=== PATIENT | female | born 1995 | race African-American/Black ===

== ENCOUNTER 2018-02-24 06:58 | Emergency (ER) | payer MEDICAID, OTHER ==
[2018-02-24] MEDS ORDERED: ONDANSETRON DISINTEGRATING 4 MG TAB ONE (07:09)
[2018-02-24] MEDS ORDERED: ONDANSETRON DISINTEGRATING 4 MG TAB PO ONE (07:10)
[2018-02-24] MEDS ORDERED: NS 1,000 ML IV ONE ×2 (07:28→09:13)
--- NOTE | 2018-02-24 07:32 | EDPHY ---
H & P Time Seen by Provider: 02/24/18 07:20 HPI/ROS: CHIEF COMPLAINT: "I am having menstrual cramps" HISTORY OF PRESENT ILLNESS: Patient is a 22-year-old female who presents emergency department reporting menstrual cramps. Patient is G1 para 0. Her last menstrual period was last month. She does not recall the date. She denies being . Patient states she regularly has severe menses. Her symptoms started a few days ago. She was seen at outside hospital [place] yesterday. There she was told she had a normal ultrasound and a negative test. Her labs are normal. She was discharged home after feeling better. Her cramps have returned. She describes severe lower cramps. Does not radiate to her back. No dysuria frequency. No vaginal discharge. No fevers or chills. REVIEW OF SYSTEMS: My complete review of systems is negative except as mentioned in the HPI. Past Medical/Surgical History: Includes menorrhagia, anemia, miscarriage Past surgical history: Negative Social history: The patient denies smoking Smoking Status: Former smoker Physical Exam: 37, 112/86, 83, 24, 93% on room air GENERAL: Mild acute distress, alert. HEENT: Eyes normal to inspection, normal pharynx, no signs of dehydration. NECK: No thyromegaly, no lymphadenopathy, supple. RESPIRATORY: Clear to auscultation bilaterally, no rales, rhonchi or wheezing. CVS: Regular rate and rhythm, no rubs, murmurs, or gallops. ABDOMEN: Soft, mild diffuse lower abdominal tenderness palpation with no rebound or guarding, nondistended, no organomegaly. BACK: Normal to inspection, no CVA tenderness. SKIN: Normal color, no rash, warm, dry. No pallor. EXTREMITIES: No pedal edema, no calf tenderness, no Homans sign or cords, no joint swelling. NEURO/PSYCH: Alert and oriented, normal mood and affect, normal motor sensory exam. Constitutional: Initial Vital Signs Temperature (C) 37 C 02/24/18 07:06 Heart Rate 83 02/24/18 07:06 Respiratory Rate 24 H 02/24/18 07:06 Blood Pressure 112/86 H 02/24/18 07:06 O2 Sat (%) 93 02/24/18 07:06 O2 Delivery Mode Room Air Allergies/Adverse Reactions: indomethacin Allergy (Verified 02/24/18 07:05) metoclopramide [From Reglan] Allergy (Verified 02/24/18 07:05) Home Medications: Medication Instructions Recorded NK [No Known Home Meds] 02/24/18 Medical Decision Making ED Course/Re-evaluation: In the emergency department I discussed possible etiologies with the patient. I answered all her questions. IV was placed. Laboratory studies were obtained. I attempted to obtain the old records from the [facility]. Patient was given normal saline 1 L IV for hydration. She was given morphine 4 mg IV for pain. She was given Zofran 4 mg orally back triage. 850: I reviewed the patient's laboratory studies. White count was normal. Patient is mildly anemic. Chemistry panel is normal. Renal function normal. is negative. The patient was still having abdominal discomfort and cramping. It is noted the patient has an allergy to indomethacin. Patient was given Dilaudid 0.5 mg IV. 930: I rechecked the patient. She states her cramps have completely resolved. Abdomen is soft, nontender nondistended. She describes mild anxiety. She has a history of anxiety attacks. She is given Ativan 0.5 mg IV. She has called her friend to come pick her up. I am still waiting on records from the the [facility]. 10 20: I rechecked the patient is doing well. Her abdominal pain is resolved. Soft, nontender nondistended. She is given warnings prior to leaving. Of note, never she received the records from the outside facility. The patient reiterates that the ultrasound was reported to her as negative. Differential Diagnosis: My differential includes but is not limited to dysmenorrhea, ovarian cyst, ovarian torsion, , ectopic , PID, STD, urinary tract infection , small-bowel obstruction, perforation - Data Points Laboratory Results: Laboratory Results 02/24/18 07:35 02/24/18 07:35 02/24/18 02/24/18 02/24/18 09:00 07:35 07:35 WBC RBC Hgb Hct MCV MCH MCHC RDW Plt Count MPV Neut % (Auto) Lymph % (Auto) Loving % (Auto) Eos % (Auto) Baso % (Auto) Nucleat RBC Rel Count Absolute Neuts (auto) Absolute Lymphs (auto) Absolute Monos (auto) Absolute Eos (auto) Absolute Basos (auto) Absolute Nucleated RBC Immature Gran % Immature Gran # Sodium 143 mEq/L mEq/L (135-145) Potassium 3.8 mEq/L mEq/L (3.5-5.2) Chloride 111 mEq/L H mEq/L (97-110) Carbon Dioxide 22 mEq/l mEq/l (22-31) Anion Gap 10 mEq/L mEq/L (8-16) BUN 8 mg/dL mg/dL (7-23) Creatinine 0.9 mg/dL mg/dL (0.6-1.0) Estimated GFR > 60 Glucose 102 mg/dL H mg/dL (70-100) Calcium 8.8 mg/dL mg/dL (8.5-10.4) Beta HCG, Qual NEGATIVE Urine Color YELLOW Urine Appearance HAZY Urine pH 5.0 (5.0-7.5) Ur Specific [place] 1.025 (1.002-1.030) Urine Protein NEGATIVE (NEGATIVE) Urine Ketones 1+ H (NEGATIVE) Urine Blood 3+ H (NEGATIVE) Urine Nitrate NEGATIVE (NEGATIVE) Urine Bilirubin NEGATIVE (NEGATIVE) Urine Urobilinogen NEGATIVE EU EU (0.2-1.0) Ur Leukocyte Esterase NEGATIVE (NEGATIVE) Urine RBC 15-25 /hpf H /hpf (0-3) Urine WBC 3-5 /hpf H /hpf (0-3) Ur Epithelial Cells TRACE /lpf /lpf (NONE-1+) Urine Bacteria TRACE /hpf H /hpf (NONE SEEN) Urine Mucus TRACE /lpf /lpf (NONE-1+) Urine Glucose NEGATIVE (NEGATIVE) 02/24/18 07:35 WBC 5.61 10^3/uL 10^3/uL (3.80-9.50) RBC 4.53 10^6/uL 10^6/uL (4.18-5.33) Hgb 10.8 g/dL L g/dL (12.6-16.3) Hct 35.3 % L % (38.0-47.0) MCV 77.9 fL L fL (81.5-99.8) MCH 23.8 pg L pg (27.9-34.1) MCHC 30.6 g/dL L g/dL (32.4-36.7) RDW 14.4 % % (11.5-15.2) Plt Count 263 10^3/uL 10^3/uL (150-400) MPV 9.0 fL fL (8.7-11.7) Neut % (Auto) 53.1 % % (39.3-74.2) Lymph % (Auto) 34.6 % % (15.0-45.0) Loving % (Auto) 6.6 % % (4.5-13.0) Eos % (Auto) 4.8 % % (0.6-7.6) Baso % (Auto) 0.7 % % (0.3-1.7) Nucleat RBC Rel Count 0.0 % % (0.0-0.2) Absolute Neuts (auto) 2.98 10^3/uL 10^3/uL (1.70-6.50) Absolute Lymphs (auto) 1.94 10^3/uL 10^3/uL (1.00-3.00) Absolute Monos (auto) 0.37 10^3/uL 10^3/uL (0.30-0.80) Absolute Eos (auto) 0.27 10^3/uL 10^3/uL (0.03-0.40) Absolute Basos (auto) 0.04 10^3/uL 10^3/uL (0.02-0.10) Absolute Nucleated RBC 0.00 10^3/uL 10^3/uL (0-0.01) Immature Gran % 0.2 % % (0.0-1.1) Immature Gran # 0.01 10^3/uL 10^3/uL (0.00-0.10) Sodium Potassium Chloride Carbon Dioxide Anion Gap BUN Creatinine Estimated GFR Glucose Calcium Beta HCG, Qual Urine Color Urine Appearance Urine pH Ur Specific [place] Urine Protein Urine Ketones Urine Blood Urine Nitrate Urine Bilirubin Urine Urobilinogen Ur Leukocyte Esterase Urine RBC Urine WBC Ur Epithelial Cells Urine Bacteria Urine Mucus Urine Glucose Medications Given: Hydromorphone HCl (Dilaudid) 0.5 mg IVP Q4HRS PRN PRN Reason: Pain, Severe Unable to Take PO Stop: 03/06/18 08:52 Last Admin: 02/24/18 09:15 Dose: 0.5 mg Discontinued Medications Sodium Chloride (Ns) 1,000 mls @ 0 mls/hr IV ONCE ONE; Wide Open PRN Reason: Protocol Stop: 02/24/18 07:29 Last Admin: 02/24/18 07:40 Dose: 1,000 mls Sodium Chloride (Ns) 1,000 mls @ 0 mls/hr IV ONCE ONE PRN Reason: Wide Open Stop: 02/24/18 09:14 Last Admin: 02/24/18 09:14 Dose: 1,000 mls Lorazepam (Ativan Injection) 1 mg IVP EDNOW ONE Stop: 02/24/18 09:32 Last Admin: 02/24/18 09:52 Dose: Not Given Lorazepam (Ativan Injection) 0.5 mg IVP EDNOW ONE Stop: 02/24/18 09:34 Last Admin: 02/24/18 09:41 Dose: 0.5 mg Morphine Sulfate (Morphine) 4 mg IVP EDNOW ONE Stop: 02/24/18 07:34 Last Admin: 02/24/18 07:41 Dose: 4 mg Ondansetron HCl (Zofran Odt) 4 mg PO EDNOW ONE Stop: 02/24/18 07:11 Last Admin: 02/24/18 07:11 Dose: 4 mg Ondansetron HCl (Zofran) 4 mg IVP EDNOW ONE Stop: 02/24/18 08:08 Last Admin: 02/24/18 08:14 Dose: 4 mg Departure - Departure Disposition: Home, Routine, Self-Care Clinical Impression: Abdominal pain Qualifiers: Abdominal location: lower abdomen, unspecified Qualified Code(s): R10.30 - Lower abdominal pain, unspecified Condition: Good Instructions: Dysmenorrhea (ED), Acute Abdominal Pain (ED) Additional Instructions: Return with increasing pain, vomiting, fever or any other concerns. Referrals: Caroline Hamlin [Primary Care Provider] - As per Instructions
[2018-02-24 07:42] LABS: PLATELET COUNT 263 10^3/uL (150-400)
[2018-02-24] MEDS ORDERED: ONDANSETRON 4 MG/2 ML VIAL IVP ONE (08:07)
[2018-02-24] MEDS ORDERED: HYDROmorphONE/DILAUDID 1 MG/ML INJ IVP PRN (08:53)
[2018-02-24] MEDS ORDERED: HYDROmorphONE/DILAUDID 2 MG/ML INJ ONE (09:08)
[2018-02-24] MEDS ORDERED: HYDROmorphONE/DILAUDID 2 MG/ML INJ IVP PRN (09:30)
[2018-02-24] MEDS ORDERED: LORazepam 2 MG/ML INJ IVP ONE ×2 (09:31→09:33)
[2018-02-24 10:38] VITALS: BP 99/82
== END 2018-02-24 10:38 | disposition home or self-care (01) ==
DX: R10.30 Lower abdominal pain, unspecified (principal); E86.9 Volume depletion, unspecified; Z87.891 Personal history of nicotine dependence
CPT/HCPCS: 96374; J1170; J2060; J2270; J2405

== ENCOUNTER 2018-02-24 18:01 | Emergency (ER) | payer OTHER ==
[2018-02-24] MEDS ORDERED: LORazepam 2 MG/ML INJ IVP ONE (18:07)
[2018-02-24] MEDS ORDERED: HALOPERIDOL LACT 5 MG/ML INJ IVP ONE (18:07)
--- NOTE | 2018-02-24 18:11 | EDPHY ---
H & P Stated Complaint: Nausea and vomiting. Time Seen by Provider: 02/24/18 18:01 HPI/ROS: CHIEF COMPLAINT: Muscle cramping HISTORY OF PRESENT ILLNESS: Patient is a 22-year-old female with previous miscarriage with a history severe menstrual cramping. She states that she frequently has to come the hospital during her menses. She was seen at [facility] yesterday and here earlier today. She reports normal ultrasound and lab work at [facility] yesterday. She was treated with Zofran and fentanyl successfully but her symptoms returned today and she continued to vomit. She came here earlier and had normal lab work other than a small amount of blood in her urine which is from her menses. She denies urinary symptoms. No fevers. She felt better after Zofran and morphine. This afternoon she had a return of her pain and vomited and called ambulance again. She has been taking ibuprofen at home without significant relief. Does not have any abdominal tenderness. No history of abdominal surgery. REVIEW OF SYSTEMS: Constitutional: denies: chills, fever, recent illness, recent injury EENTM: denies: blurred vision, double vision, nose congestion Respiratory: denies: cough, shortness of breath Cardiac: denies: chest pain, irregular heart rate, lightheadedness, palpitations Gastrointestinal/Abdominal: denies: abdominal pain, diarrhea, nausea, vomiting, blood streaked stools Genitourinary: See HPI denies: dysuria, frequency, hematuria Musculoskeletal: denies: joint pain, muscle pain Skin: denies: lesions, rash, jaundice, bruising Neurological: denies: headache, numbness, paresthesia, tingling, dizziness, weakness Hematologic/Lymphatic: denies: blood clots, easy bleeding, easy bruising Immunologic/allergic: denies: HIV/AIDS, transplant EXAM: GENERAL: Well-appearing, well-nourished and in no acute distress. HEAD: Atraumatic, normocephalic. EYES: Pupils equal round and reactive to light, extraocular movements intact, sclera anicteric, conjunctiva are normal. ENT: TMs normal, nares patent, oropharynx clear without exudates. Moist mucous membranes. NECK: Normal range of motion, supple without lymphadenopathy or JVD. LUNGS: Breath sounds clear to auscultation bilaterally and equal. No wheezes rales or rhonchi. HEART: Regular rate and rhythm without murmurs, rubs or gallops. ABDOMEN: Soft, nontender, normoactive bowel sounds. No guarding, no rebound. No masses appreciated. BACK: No CVA tenderness, no spinal tenderness, step-offs or deformities EXTREMITIES: Normal range of motion, no pitting or edema. No clubbing or cyanosis. NEUROLOGICAL: Cranial nerves II through XII grossly intact. Normal speech, normal gait. 5/5 strength, normal movement in all extremities, normal sensation PSYCH: Normal mood, normal affect. SKIN: Warm, dry, normal turgor, no visible rashes or lesions. Source: Patient Exam Limitations: No limitations - Personal History LMP (Females 10-55): Over 28 Days Ago Current Tetanus Diphtheria and Acellular Pertussis (TDAP): Yes - Medical/Surgical History Hx Asthma: No Hx Chronic Respiratory Disease: No Hx Diabetes: No Hx Cardiac Disease: No Hx Renal Disease: No Hx Cirrhosis: No Hx Alcoholism: No Hx HIV/AIDS: No Hx Splenectomy or Spleen Trauma: No Other [facility] - Family History Significant Family History: No pertinent family hx - Social History Smoking Status: Former smoker Alcohol Use: None Constitutional: Initial Vital Signs Temperature (C) 36.6 C 02/24/18 18:04 Heart Rate 75 02/24/18 18:04 Respiratory Rate 16 02/24/18 18:04 Blood Pressure 111/71 02/24/18 18:04 O2 Sat (%) 98 02/24/18 18:04 O2 Delivery Mode Room Air Allergies/Adverse Reactions: indomethacin Allergy (Verified 02/24/18 07:05) metoclopramide [From Reglan] Allergy (Verified 02/24/18 07:05) Home Medications: Medication Instructions Recorded LORazepam [Ativan 1 mg (RX)] 1 mg PO Q6-8PRN PRN #10 tab 02/24/18 NK [No Known Home Meds] 02/24/18 Promethazine HCl [Phenergan 25mg 25 mg PO Q6-8PRN PRN #20 tab 02/24/18 (RX)] Medical Decision Making ED Course/Re-evaluation: The patient has a benign abdominal exam. She had normal lab work earlier today. She had a normal ultrasound yesterday. I will treat with Haldol and Ativan for cramping and observed. She would like to be prescribed different nausea and pain medication. 6:45 p.m. the patient is feeling much better. She is wanting to try p.o. Challenge. She is requesting nausea medication and Ativan to take at home for her cramping. Differential Diagnosis: Partial list of the Differential diagnosis considered include but were not limited to; dysmenorrhea, , urinary tract infection and although unlikely based on the history and physical exam, I also considered ovarian cyst , ovarian torsion, pelvic inflammatory disease. I discussed these differential diagnoses and the plan with the patient as well as the usual and expected course. The patient understands that the diagnosis is provisional and that in medicine we are not always correct and that further workup is often warranted. Usual and customary warnings were given. All of the patient's questions were answered. The patient was instructed to return to the emergency department should the symptoms at all worsen or return, otherwise to followup with the physician as we discussed. - Data Points Medications Given: Discontinued Medications Haloperidol Lactate (Haldol Injection) 5 mg IVP EDNOW ONE Stop: 02/24/18 18:08 Last Admin: 02/24/18 18:35 Dose: 5 mg Lorazepam (Ativan Injection) 1 mg IVP EDNOW ONE Stop: 02/24/18 18:08 Last Admin: 02/24/18 18:35 Dose: 1 mg Lorazepam (Ativan 1 Mg Prepack#4) 1 btl TAKEHOME EDNOW ONE Stop: 02/24/18 19:03 Last Admin: 02/24/18 19:10 Dose: 1 btl Promethazine HCl (Phenergan 25 Mg Prepack #4) 1 btl TAKEHOME EDNOW ONE Stop: 02/24/18 19:03 Last Admin: 02/24/18 19:10 Dose: 1 btl Departure - Departure Disposition: Home, Routine, Self-Care Clinical Impression: Dysmenorrhea Condition: Fair Instructions: Lorazepam (By mouth), Promethazine (By mouth), Dysmenorrhea (ED) Referrals: Patient,NotPresent [Unknown] - As per Instructions Prescriptions: LORazepam [Ativan 1 mg (RX)] 1 mg PO Q6-8PRN PRN #10 tab PRN Reason: Cramping Promethazine HCl [Phenergan 25mg (RX)] 25 mg PO Q6-8PRN PRN #20 tab PRN Reason: Nausea/Vomiting, Use 2nd
[2018-02-24] MEDS ORDERED: LORAZEPAM 1 MG PREPACK#4 BTL TAKEHOME ONE (19:02)
[2018-02-24] MEDS ORDERED: PROMETHAZINE 25 MG PREPACK #4 BTL TAKEHOME ONE (19:02)
[2018-02-24 19:16] VITALS: BP 107/82
== END 2018-02-24 19:15 | disposition home or self-care (01) ==
LOC: EDUNIT#
DX: N94.6 Dysmenorrhea, unspecified (principal); Z87.891 Personal history of nicotine dependence
CPT/HCPCS: 96374; J1630; J2060

== ENCOUNTER 2018-02-25 12:51 | Emergency (ER) | payer OTHER ==
[2018-02-25 12:57] VITALS: BP 108/69
--- NOTE | 2018-02-25 13:19 | EDPHY ---
H & P Stated Complaint: seen yesterday/here for anxiety/has ativan but didn't know she should take Time Seen by Provider: 02/25/18 13:15 HPI/ROS: CHIEF COMPLAINT: Anxiety HISTORY OF PRESENT ILLNESS: Patient is a 22-year-old female who is here complaining of anxiety. She was seen here twice yesterday complaining of menstrual cramping. She states that she frequently has to go to the ER because her menstrual cramping is so bad. She was initially treated with narcotics but her symptoms returned. I prescribed her Ativan which seemed to help. She states that she is no longer having any cramping but that she is having anxiety. She states that she does not always have anxiety but typically does in the situations surrounding her menstrual cramping. She was not aware that she could also takes Ativan for anxiety. She is not on any long-term anxiolytics. REVIEW OF SYSTEMS: Constitutional: denies: chills, fever, recent illness, recent injury EENTM: denies: blurred vision, double vision, nose congestion Respiratory: denies: cough, shortness of breath Cardiac: denies: chest pain, irregular heart rate, lightheadedness, palpitations Gastrointestinal/Abdominal: denies: abdominal pain, diarrhea, nausea, vomiting, blood streaked stools Genitourinary: denies: dysuria, frequency, hematuria, pain Musculoskeletal: denies: joint pain, muscle pain Skin: denies: lesions, rash, jaundice, bruising Neurological: denies: headache, numbness, paresthesia, tingling, dizziness, weakness Hematologic/Lymphatic: denies: blood clots, easy bleeding, easy bruising Immunologic/allergic: denies: HIV/AIDS, transplant EXAM: GENERAL: Well-appearing, well-nourished and in no acute distress. HEAD: Atraumatic, normocephalic. EYES: Pupils equal round and reactive to light, extraocular movements intact, sclera anicteric, conjunctiva are normal. ENT: TMs normal, nares patent, oropharynx clear without exudates. Moist mucous membranes. NECK: Normal range of motion, supple without lymphadenopathy or JVD. LUNGS: Breath sounds clear to auscultation bilaterally and equal. No wheezes rales or rhonchi. HEART: Regular rate and rhythm without murmurs, rubs or gallops. ABDOMEN: Soft, nontender, normoactive bowel sounds. No guarding, no rebound. No masses appreciated. BACK: No CVA tenderness, no spinal tenderness, step-offs or deformities EXTREMITIES: Normal range of motion, no pitting or edema. No clubbing or cyanosis. NEUROLOGICAL: Cranial nerves II through XII grossly intact. Normal speech, normal gait. 5/5 strength, normal movement in all extremities, normal sensation PSYCH: Normal mood, normal affect. SKIN: Warm, dry, normal turgor, no visible rashes or lesions. Source: Patient Exam Limitations: No limitations - Personal History LMP (Females 10-55): Now Current Tetanus Diphtheria and Acellular Pertussis (TDAP): Yes - Medical/Surgical History Hx Asthma: No Hx Chronic Respiratory Disease: No Hx Diabetes: No Hx Cardiac Disease: No Hx Renal Disease: No Hx Cirrhosis: No Hx Alcoholism: No Hx HIV/AIDS: No Hx Splenectomy or Spleen Trauma: No Other PMH: [facility] 05/09, ANEMIA - Family History Significant Family History: No pertinent family hx - Social History Smoking Status: Former smoker Alcohol Use: None Constitutional: Initial Vital Signs Temperature (C) 37 C 02/25/18 12:54 Heart Rate 76 02/25/18 12:54 Respiratory Rate 17 02/25/18 12:54 Blood Pressure 108/69 02/25/18 12:54 O2 Sat (%) 95 02/25/18 12:54 O2 Delivery Mode Room Air Allergies/Adverse Reactions: indomethacin Allergy (Verified 02/25/18 12:53) metoclopramide [From Reglan] Allergy (Verified 02/25/18 12:53) Home Medications: Medication Instructions Recorded LORazepam [Ativan 1 mg (RX)] 1 mg PO Q6-8PRN PRN #10 tab 02/24/18 Promethazine HCl [Phenergan 25mg 25 mg PO Q6-8PRN PRN #20 tab 02/24/18 (RX)] Medical Decision Making ED Course/Re-evaluation: 1:20 p.m. the patient is now where that she can take Ativan p.r.n. For anxiety. She declines further treatment and will take the dose that she has in her pocket. I urged her to wait till she gets home. She is eager to leave. Differential Diagnosis: Partial list of the Differential diagnosis considered include but were not limited to; anxiety, depression, menstrual cramping and although unlikely based on the history and physical exam, I also considered , ovarian cyst, ovarian torsion, hemorrhage, bleeding. I discussed these differential diagnoses and the plan with the patient as well as the usual and expected course. The patient understands that the diagnosis is provisional and that in medicine we are not always correct and that further workup is often warranted. Usual and customary warnings were given. All of the patient's questions were answered. The patient was instructed to return to the emergency department should the symptoms at all worsen or return, otherwise to followup with the physician as we discussed. Departure - Departure Disposition: Home, Routine, Self-Care Clinical Impression: Anxiety Condition: Fair Instructions: Anxiety (ED) Additional Instructions: Take the Ativan previously provided for muscle cramping or anxiety as needed. Follow up with her regular doctor for more definitive treatment. Referrals: NONE *PRIMARY CARE P,. [Primary Care Provider] - As per Instructions
== END 2018-02-25 13:31 | disposition home or self-care (01) ==
DX: F41.9 Anxiety disorder, unspecified (principal); Z87.891 Personal history of nicotine dependence

== ENCOUNTER 2018-02-26 06:11 | Emergency (ER) | payer OTHER ==
[2018-02-26] MEDS ORDERED: NS 1,000 ML IV ONE (06:22)
[2018-02-26] MEDS ORDERED: ONDANSETRON 4 MG/2 ML VIAL IVP ONE (06:22)
[2018-02-26] MEDS ORDERED: FAMOTIDINE 20 MG/NACL 50 ML IV ONE (06:22)
[2018-02-26 06:53] LABS: PLATELET COUNT 295 10^3/uL (150-400)
--- NOTE | 2018-02-26 07:17 | EDPHY ---
HPI/HX/ROS/PE/MDM Narrative: CHIEF COMPLAINT: Nausea HPI: The patient is a 22-year-old female with a history of chronic abdominal pain, anxiety and nausea. Of note, this is her 4th emergency department visit in the last 2 days for similar symptoms with a negative workup. She tells me that she was hospitalized for approximately a month at [facility] in [place] in October of this year related to these complaints. She underwent a full workup at that time including EGD and colonoscopy and was finally diagnosed with gastritis. She returns to the emergency department today complaining of continued nausea, vomiting and anxiety. She states that her abdominal pain is completely resolved. She denies blood in emesis, fever or chest pain. She states this feels similar to other episodes when she has had recurrent nausea and vomiting and she is unable to tolerate anything by mouth at home. She states that oral Zofran does not alleviate her symptoms. REVIEW OF SYSTEMS: Aside from elements discussed in the HPI, a comprehensive 10-point review of systems was reviewed and is negative. PMH: Frequent ED visits related to abdominal pain. Review of chorea 0 indicates several clusters of visits to various emergency departments [place] including multiple visits to [facility] in October as well as for visits to [facility] over the course of a few days. SOCIAL HISTORY: Lives in [place]. Denies active drug abuse. PHYSICAL EXAM: General:Patient is alert, in no acute distress. ENT:Eyes are normal to inspection. ENT inspection normal. Neck: Normal inspection. Full range of motion. Respiratory:No respiratory distress. Breath sounds normal bilaterally. Cardiovascular: Regular rate and rhythm. Strong peripheral pulses. Normal cap refill. Abdomen:The abdomen is nontender to palpation. There are no peritoneal signs. There are normal bowel sounds. Back: Normal to inspection. No tenderness to palpation. Skin: Normal color. No rash. Warm and dry. Extremities: Normal appearance. Full range of motion. Neuro: Oriented x3. Normal motor function. Normal sensory function. ED Course: Patient was treated with IVNS, zofran and ativan. She fell asleep. On re-eval at 11:50am, patient is awake, feels much better and is tolerating PO. She apparently was not interested in talking with Ariela, our field case manager. She is comfortable with plan for discharge home. MDM: This patient presents with what seems most likely to me to be either undiagnosed cyclic vomiting syndrome or some other chronic intermittent functional abdominal disorder. She has undergone an extensive workup over the course of numerous ED visits and hospitalizations and her labs are unchanged. I doubt acute serious process. She was very pleasant throughout and I do not think she is overtly seeking controlled substances. - Data Points Laboratory Results: Laboratory Results 02/26/18 06:35 02/26/18 06:35 02/26/1818 02/26/18 06:35 06:35 06:35 WBC RBC Hgb Hct MCV MCH MCHC RDW Plt Count MPV Neut % (Auto) Lymph % (Auto) Andrews % (Auto) Eos % (Auto) Baso % (Auto) Nucleat RBC Rel Count Absolute Neuts (auto) Absolute Lymphs (auto) Absolute Monos (auto) Absolute Eos (auto) Absolute Basos (auto) Absolute Nucleated RBC Immature Gran % Immature Gran # Sodium 144 mEq/L mEq/L (135-145) Potassium 3.6 mEq/L mEq/L (3.3-5.0) Chloride 104 mEq/L mEq/L (97-110) Carbon Dioxide 20 mEq/l L mEq/l (22-31) Anion Gap 20 mEq/L H mEq/L (8-16) BUN 10 mg/dL mg/dL (7-23) Creatinine 0.8 mg/dL mg/dL (0.6-1.0) Estimated GFR > 60 Glucose 85 mg/dL mg/dL (70-100) Calcium 9.3 mg/dL mg/dL (8.5-10.4) Total Bilirubin 0.8 mg/dL mg/dL (0.1-1.4) Conjugated Bilirubin 0.5 mg/dL mg/dL (0.0-0.5) Unconjugated Bilirubin 0.3 mg/dL mg/dL (0.0-1.1) AST 29 IU/L IU/L (14-46) ALT 36 IU/L IU/L (9-52) Alkaline Phosphatase 55 IU/L IU/L (38-126) Total Protein 8.3 g/dL H g/dL (6.3-8.2) Albumin 4.7 g/dL g/dL (3.5-5.0) Lipase 96 IU/L IU/L (23-300) Beta HCG, Qual NEGATIVE Urine Color YELLOW Urine Appearance CLEAR Urine pH 5.0 (5.0-7.5) Ur Specific [place] 1.031 H (1.002-1.030) Urine Protein 1+ H (NEGATIVE) Urine Ketones 2+ H (NEGATIVE) Urine Blood 3+ H (NEGATIVE) Urine Nitrate NEGATIVE (NEGATIVE) Urine Bilirubin NEGATIVE (NEGATIVE) Urine Urobilinogen NEGATIVE EU EU (0.2-1.0) Ur Leukocyte Esterase NEGATIVE (NEGATIVE) Urine RBC 25-50 /hpf H /hpf (0-3) Urine WBC 1-3 /hpf /hpf (0-3) Ur Epithelial Cells TRACE /lpf /lpf (NONE-1+) Urine Mucus 1+ /lpf /lpf (NONE-1+) Urine Glucose NEGATIVE (NEGATIVE) 02/26/18 06:35 WBC 7.92 10^3/uL 10^3/uL (3.80-9.50) RBC 4.86 10^6/uL 10^6/uL (4.18-5.33) Hgb 11.7 g/dL L g/dL (12.6-16.3) Hct 37.8 % L % (38.0-47.0) MCV 77.8 fL L fL (81.5-99.8) MCH 24.1 pg L pg (27.9-34.1) MCHC 31.0 g/dL L g/dL (32.4-36.7) RDW 14.2 % % (11.5-15.2) Plt Count 295 10^3/uL 10^3/uL (150-400) MPV 9.6 fL fL (8.7-11.7) Neut % (Auto) 78.9 % H % (39.3-74.2) Lymph % (Auto) 13.8 % L % (15.0-45.0) Andrews % (Auto) 5.7 % % (4.5-13.0) Eos % (Auto) 1.0 % % (0.6-7.6) Baso % (Auto) 0.3 % % (0.3-1.7) Nucleat RBC Rel Count 0.0 % % (0.0-0.2) Absolute Neuts (auto) 6.26 10^3/uL 10^3/uL (1.70-6.50) Absolute Lymphs (auto) 1.09 10^3/uL 10^3/uL (1.00-3.00) Absolute Monos (auto) 0.45 10^3/uL 10^3/uL (0.30-0.80) Absolute Eos (auto) 0.08 10^3/uL 10^3/uL (0.03-0.40) Absolute Basos (auto) 0.02 10^3/uL 10^3/uL (0.02-0.10) Absolute Nucleated RBC 0.00 10^3/uL 10^3/uL (0-0.01) Immature Gran % 0.3 % % (0.0-1.1) Immature Gran # 0.02 10^3/uL 10^3/uL (0.00-0.10) Sodium Potassium Chloride Carbon Dioxide Anion Gap BUN Creatinine Estimated GFR Glucose Calcium Total Bilirubin Conjugated Bilirubin Unconjugated Bilirubin AST ALT Alkaline Phosphatase Total Protein Albumin Lipase Beta HCG, Qual Urine Color Urine Appearance Urine pH Ur Specific [place] Urine Protein Urine Ketones Urine Blood Urine Nitrate Urine Bilirubin Urine Urobilinogen Ur Leukocyte Esterase Urine RBC Urine WBC Ur Epithelial Cells Urine Mucus Urine Glucose Medications Given: Discontinued Medications Sodium Chloride (Ns) 1,000 mls @ 0 mls/hr IV EDNOW ONE; Wide Open PRN Reason: Protocol Stop: 02/26/18 06:23 Last Admin: 02/26/18 06:39 Dose: 1,000 mls Famotidine/Sodium Chloride (Pepcid 20 Mg (Premix)) 50 mls @ 200 mls/hr IV EDNOW ONE Stop: 02/26/18 06:36 Last Admin: 02/26/18 06:39 Dose: 50 mls Lorazepam (Ativan Injection) 1 mg IVP EDNOW ONE Stop: 02/26/18 08:10 Last Admin: 02/26/18 08:13 Dose: 1 mg Ondansetron HCl (Zofran) 4 mg IVP EDNOW ONE Stop: 02/26/18 06:23 Last Admin: 02/26/18 06:35 Dose: 4 mg General Time Seen by Provider: 02/26/18 07:07 Initial Vital Signs: Initial Vital Signs Temperature (C) 37.2 C 02/26/18 06:13 Heart Rate 77 02/26/18 06:13 Respiratory Rate 16 02/26/18 06:13 Blood Pressure 111/74 02/26/18 06:13 O2 Sat (%) 98 02/26/18 06:13 O2 Delivery Mode Room Air Allergies/Adverse Reactions: indomethacin Allergy (Verified 02/26/18 06:16) metoclopramide [From Reglan] Allergy (Verified 02/26/18 06:16) Home Medications: Medication Instructions Recorded LORazepam [Ativan 1 mg (RX)] 1 mg PO Q6-8PRN PRN #10 tab 02/24/18 Promethazine HCl [Phenergan 25mg 25 mg PO Q6-8PRN PRN #20 tab 02/24/18 (RX)] Departure - Departure Disposition: Home, Routine, Self-Care Clinical Impression: Cyclical vomiting Condition: Good Instructions: Acute Nausea and Vomiting (ED) Additional Instructions: Follow-up with your primary doctor within 72 hours. Return to the Emergency Department for fever, chest pain, shortness of breath, increasing pain or other worsening of condition. Referrals: NONE *PRIMARY CARE P,. [Primary Care Provider] - As per Instructions
[2018-02-26] MEDS ORDERED: LORazepam 2 MG/ML INJ IVP ONE (08:09)
[2018-02-26 11:35] VITALS: BP 113/58
== END 2018-02-26 12:03 | disposition home or self-care (01) ==
DX: G43.A0 Cyclical vomiting, in migraine, not intractable (principal); E86.9 Volume depletion, unspecified
CPT/HCPCS: 96374; J2060; J2405

== ENCOUNTER 2018-03-01 08:23 | Emergency (ER) | payer OTHER ==
[2018-03-01] MEDS ORDERED: ONDANSETRON 4 MG/2 ML VIAL IVP ONE (09:00)
[2018-03-01] MEDS ORDERED: NS 1,000 ML IV ONE (09:00)
--- NOTE | 2018-03-01 09:06 | EDPHY ---
H & P Stated Complaint: Continued nausea and vomiting. Source: Patient, Old records Exam Limitations: No limitations - Personal History LMP (Females 10-55): 1-7 Days Ago Current Tetanus Diphtheria and Acellular Pertussis (TDAP): Yes - Medical/Surgical History Hx Asthma: No Hx Chronic Respiratory Disease: No Hx Diabetes: No Hx Cardiac Disease: No Hx Renal Disease: No Hx Cirrhosis: No Hx Alcoholism: No Hx HIV/AIDS: No Hx Splenectomy or Spleen Trauma: No Other PMH: MISSCARRIAGE 05/09, ANEMIA - Social History Smoking Status: Former smoker Time Seen by Provider: 03/01/18 08:45 HPI/ROS: HPI: This is a 23-year-old female who presents with Chief Complaint: Nausea and anxiety Location: psych Quality: Nausea and anxiety Duration: Several days Signs and Symptoms: no fever,+ nausea, + vomiting, no hematemesis, no blood in stool, no abdominal bloating, no diarrhea, no back pain, no urinary symptoms, no vaginal bleeding/discharge, no indigestion, no chest pain, no shortness of breath Timing: Acute on chronic Severity: Moderate Context: Patient is generally healthy presents to the emergency room for the 5th visit in 10 days with complaints of nausea, vomiting x1 her stomach contents this morning and chronic anxiety. Patient reports that she uses promethazine which controlled her nausea but it makes her sleep all day. She is not taking the Pepcid consistently. She has not followed up with OBGYN. Her period was last week and lasted 5 days. She denies any abdominal pain/ cramping at this time. She was able to eat breakfast this morning and then 30 min later vomited her stomach contents. After further questioning, patient reports that she smokes marijuana almost daily in the evenings due to her insomnia. She reports that she has generalized anxiety but has not sought formal behavioral health treatment. She denies any suicidal ideation/homicidal ideation. She lives in an apartment with roommates who she reports are very supportive. She last urinated at 7:00 a.m. Approximately 2 hr prior to arrival. She also reports that she has a prescription for Ativan and has not taking any in the last 24 hr. Modifying Factors: See above Comment: ROS: see HPI Constitutional: No fever, no chills, no weight loss Eyes: No blurred vision Respiratory: No shortness of breath, no cough Cardiovascular: No chest pain, no palpitations Gastrointestinal: + nausea, + vomiting, no diarrhea, no hematemesis, no blood in stool Genitourinary: No dysuria, no blood in urine Extremities: No myalgias, no edema Neurologic: No weakness, no numbness Skin: No rashes, no petechiae Hematologic: No bruising, no bleeding MEDICAL/SURGICAL/SOCIAL HISTORY: Medical history: MISCARRIAGE 05/09, ANEMIA Surgical history: Denies Social history: Originally from [place]. Lives in apartment with roommate. Works at [employer] in [place]. Former tobacco smoker. Family history noncontributory. CONSTITUTIONAL: Extremely well-appearing young adult female, awake and alert, no obvious distress HEENT: Atraumatic and normocephalic, PERRL, EOMI. Nares patent; no rhinorrhea; no nasal mucosal edema. Tympanic membranes clear. Oropharynx clear, no exudate and moist pink mucosa. Airway patent. No lymphadenopathy. No meningismus. Cardiovascular: Normal S1/S2, regular rate, regular rhythm, without murmur rub or gallop. PULMONARY/CHEST: Symmetrical and nontender. Clear to auscultation bilaterally. Good air movement. No accessory muscle usage. ABDOMEN: Soft, nondistended, nontender, no rebound, no guarding, no peritoneal signs, no masses or organomegaly. No CVAT. EXTREMITIES: 2/2 pulses, strength 5/5, no deformities, no clubbing, no cyanosis or edema. NEUROLOGICAL: no focal neuro deficits. GCS 15. SKIN: Warm and dry, no erythema. no rash. Good capillary refill. ([place]) Constitutional: Initial Vital Signs Temperature (C) 36.8 C 03/01/18 08:29 Heart Rate 88 03/01/18 08:29 Respiratory Rate 16 03/01/18 08:29 Blood Pressure 124/86 H 03/01/18 08:29 O2 Sat (%) 98 03/01/18 08:29 O2 Delivery Mode Room Air Allergies/Adverse Reactions: indomethacin Allergy (Verified 02/26/18 06:16) metoclopramide [From Reglan] Allergy (Verified 02/26/18 06:16) Home Medications: Medication Instructions Recorded LORazepam [Ativan 1 mg (RX)] 1 mg PO Q6-8PRN PRN #10 tab 02/24/18 Promethazine HCl [Phenergan 25mg 25 mg PO Q6-8PRN PRN #20 tab 02/24/18 (RX)] Medical Decision Making ED Course/Re-evaluation: Patient's abdomen is clearly soft and nontender. Doubt surgical process. BMP without any significant abnormality. 1 L normal saline with IV Zofran given. Long discussion with patient, who now realizes that she has insurance under her father and is willing to follow up with OBGYN and [facility]. Does not meet M1 hold or Detainer criteria. 0950: Reassessed patient. Passed p.o. Trial without any difficulty. Patient asking for work excuse for today and tomorrow. Works at [employer] in [place]. Patient reassures me that she already has prescriptions for Ativan, Pepcid, promethazine and actually shows me the bottles. This patient was seen under the supervision of my secondary supervising physician. I evaluated care for this patient independently. Discussed this patient with Dr. Donald who did not see the patient. (Nubia Ochoa) Differential Diagnosis: Differential diagnosis includes but is not limited to major depression functional or situational type, generalized anxiety disorder, cyclical vomiting syndrome. (Nubia Ochoa) Other Provider: PHYSICIAN DOCUMENTATION: The patient was evaluated and managed by the Physician Instructor Weaving. My co- signature indicates that I have reviewed this chart and I agree with the findings and plan of care as documented. I am the secondary supervising physician. (Giuseppe Donald) - Data Points Laboratory Results: Laboratory Results 03/01/18 09:15 03/01/18 09:15 Sodium 140 mEq/L mEq/L (135-145) Potassium 3.7 mEq/L mEq/L (3.5-5.2) Chloride 98 mEq/L mEq/L (97-110) Carbon Dioxide 22 mEq/l mEq/l (22-31) Anion Gap 20 mEq/L H mEq/L (8-16) BUN 10 mg/dL mg/dL (7-23) Creatinine 0.8 mg/dL mg/dL (0.6-1.0) Estimated GFR > 60 Glucose 70 mg/dL mg/dL (70-100) Calcium 9.5 mg/dL mg/dL (8.5-10.4) Medications Given: Discontinued Medications Sodium Chloride (Ns) 1,000 mls @ 0 mls/hr IV EDNOW ONE; Wide Open PRN Reason: Protocol Stop: 03/01/18 09:01 Last Admin: 03/01/18 09:13 Dose: 1,000 mls Ondansetron HCl (Zofran) 4 mg IVP EDNOW ONE Stop: 03/01/18 09:01 Last Admin: 03/01/18 09:14 Dose: 4 mg Departure - Departure Disposition: Home, Routine, Self-Care Clinical Impression: Continuous cannabis use, Generalized anxiety disorder Insomnia disorder Qualifiers: Insomnia type: due to other mental disorder Qualified Code(s): F51.05 - Insomnia due to other mental disorder Condition: Good Instructions: Generalized Anxiety Disorder (ED), Cyclic Vomiting Syndrome (ED) Additional Instructions: Please schedule appointment with MAREN Linton, in the next 1-2 weeks to discuss your pelvic cramping and dysmenorrhea. Please schedule an appointment in the next 5-7 days with [facility] to discuss your generalized anxiety disorder and insomnia. Please for refrain from using marijuana as this can exacerbate your nausea and vomiting. Consume a minimum of 8-10 glasses of water or electrolyte fluid replacement drinks that include Gatorade, Powerade, Pedialyte. Eat a bland diet for the next 48 hours and then slowly advance as tolerated. Take Promethazine every 6 hours as needed for nausea, vomiting. Referrals: [facility],. [Clinic] - As per Instructions Jo-Ann Moreno DO [Doctor of Osteopathy] - As per Instructions Caroline Hamlin [Primary Care Provider] - 2-3 days, call for appt. Stand Alone Forms: Work Excuse
[2018-03-01 10:19] VITALS: BP 119/78
== END 2018-03-01 10:20 | disposition home or self-care (01) ==
DX: F41.1 Generalized anxiety disorder (principal); F51.05 Insomnia due to other mental disorder; F12.90 Cannabis use, unspecified, uncomplicated; E86.9 Volume depletion, unspecified; Z87.891 Personal history of nicotine dependence
CPT/HCPCS: 96374; J2405